=== PATIENT | female | born 1980 | race Caucasian/White ===

== ENCOUNTER 2017-01-30 08:54 | Day surgery (SDC) | payer MEDICAID ==
[~2017-01-30] VITALS: Ht 152.4 cm; Wt 46.0 kg
[~2017-01-30 08:54] MED LIST: BUPR-173 PO; Bactrim PO; DIAZ10TA4 PO; FLUO20CA19 PO; HYDR-2440 PO; LEVO50TA5 PO; TRAZ100T15 PO; Thorazine PO
[2017-01-30] MEDS ORDERED: LACTATED RINGERS 1,000 ML IV SCH (09:09)
[2017-01-30 09:30] LABS: HCG UR OBC PASS
[2017-01-30 09:39] VITALS: BP 111/76
[2017-01-30] MEDS ORDERED: MIDAZOLAM 1 MG/ML, 2ML ONE (09:52)
[2017-01-30] MEDS ORDERED: FENTANYL PF 250 MCG/5ML ONE (09:52)
[2017-01-30] MEDS ORDERED: BUPIVACAINE/PF-EPI 0.25% 1:200K ONE (10:36)
[2017-01-30] MEDS ORDERED: PROPOFOL 10 MG/ML, 20ML ONE (11:00)
[2017-01-30] MEDS ORDERED: MEPERIDINE/PF 25MG/0.5ML IVPush PRN (11:00)
[2017-01-30] MEDS ORDERED: PROMETHAZINE 25 MG/ML, 1ML IV PRN (11:00)
[2017-01-30] MEDS ORDERED: DEXAMETHASONE 4 MG/ML, 1ML ONE (11:00)
[2017-01-30] MEDS ORDERED: ONDANSETRON 2MG/ML, 2ML IVPush PRN (11:00)
[2017-01-30] MEDS ORDERED: OXYcodone 5 MG/5 ML ORAL.SOL UDC PO PRN (11:00)
[2017-01-30] MEDS ORDERED: FENTANYL PF 100 MCG/2ML IV PRN (11:00)
[2017-01-30] MEDS ORDERED: ONDANSETRON 2MG/ML, 2ML ONE (11:00)
[2017-01-30] MEDS ORDERED: MIDAZOLAM 1 MG/ML, 2ML IV PRN (11:00)
[2017-01-30] MEDS ORDERED: LABETALOL 5MG/ML, 20ML IV PRN (11:00)
[2017-01-30] MEDS ORDERED: KETOROLAC 30 MG/1 ML ONE (11:00)
[2017-01-30] MEDS ORDERED: ROCURONIUM 10 MG/ML ONE (11:00)
[2017-01-30] MEDS ORDERED: ACETAMINOPHEN 325 MG TABLET PO PRN (11:00)
[2017-01-30] MEDS ORDERED: HYDROmorphone 1 MG/ML, 1ML IV PRN (11:00)
[2017-01-30] MEDS ORDERED: FENTANYL PF 100 MCG/2ML ONE (12:45)
[2017-01-30] MEDS ORDERED: ACETAMINOPHEN 325 MG TABLET ONE (12:45)
[2017-01-30] MEDS ORDERED: ACETAMINOPHEN 650 MG/20.3 ML UDC ONE (12:45)
[2017-01-30] MEDS ORDERED: OXYcodone 5 MG/5 ML ORAL.SOL UDC ONE (12:46)
== END 2017-01-30 14:10 | disposition home or self-care (01) ==
LOC: OUT 08:54
PROVIDERS: ATTEND Specialist
DX: N73.6 Female pelvic peritoneal adhesions (postinfective) (principal); G43.909 Migraine, unspecified, not intractable, without status migrainosus; F32.9 Major depressive disorder, single episode, unspecified; F41.9 Anxiety disorder, unspecified; Z82.3 Family history of stroke; F17.210 Nicotine dependence, cigarettes, uncomplicated
CPT/HCPCS: 49320; 81025; 93005; J1100; J1885; J2250; J2405; J2704; J3010; J7120

== ENCOUNTER 2017-06-27 14:18 | Emergency (ER) | payer MEDICAID ==
[~2017-06-27] VITALS: Ht 152.4 cm; Wt 45.1 kg
[2017-06-27 14:20] VITALS: BP 126/86
[2017-06-27] MEDS ORDERED: HYDROcodone/APAP 5/325 TABLET ONE (14:45)
[2017-06-27] MEDS ORDERED: HYDROcodone/APAP 5/325 TABLET PO ONE (15:00)
== END 2017-06-27 14:54 | disposition home or self-care (01) ==
LOC: ED 14:45
DX: Z76.0 Encounter for issue of repeat prescription (principal); G43.701 Chronic migraine without aura, not intractable, with status migrainosus
CPT/HCPCS: 99283

== ENCOUNTER → 2021-05-01 | Outpatient (CLI) | payer OTHER, MEDICAID ==
[~2021-05-01] MED LIST changes: -HYDR-2440 PO; +HYDR-3569 PO; +TRAZ-175 PO; -TRAZ100T15 PO
== END | disposition home or self-care (01) ==
LOC: CFH 16:02
PROVIDERS: ATTEND Obstetrics & Gynecology Reproductive Endocrinology
DX: N85.4 Malposition of uterus (principal); E28.9 Ovarian dysfunction, unspecified
CPT/HCPCS: 76830

== ENCOUNTER → 2021-05-03 | Outpatient (CLI) | payer OTHER, MEDICAID | END | disposition home or self-care (01) | LOC: CFH 08:15 | PROVIDERS: ATTEND Obstetrics & Gynecology Reproductive Endocrinology | DX: N83.02 Follicular cyst of left ovary (principal); N83.01 Follicular cyst of right ovary; E28.9 Ovarian dysfunction, unspecified | CPT/HCPCS: 76830 ==

== ENCOUNTER 2021-07-27 11:39 | Outpatient (CLI) | payer OTHER, MEDICAID | END 2021-07-27 23:59 | disposition home or self-care (01) | LOC: LAB 11:39 | PROVIDERS: ATTEND Obstetrics & Gynecology Reproductive Endocrinology | DX: N97.9 Female infertility, unspecified (principal) | CPT/HCPCS: 36415; 82670; 83001; 83002; 84144; 84443; 84702 ==